=== PATIENT | female | born 1995 | race Caucasian/White ===

== ENCOUNTER 2019-09-29 08:00 | Outpatient (RCR) | payer OTHER, SELFPAY ==
[2019-08-26 17:26] VITALS: BMI 18.3
--- NOTE | 2019-08-30 07:56 | HP.PTEVAL_ITS ---
Patient's Visit Information INDRA BAIN is a 24 year old F referred to Physical Therapy by JAYY Rae with a diagnosis of thoracic strain.. Date of Evaluation: 08/30/19 Physical Therapist: Anil Mckee DPT, OCS, CSCS - Visit Plan Frequency: 3x /Week Duration: 4-6 Weeks Plan: 3x/week for 4 weeks for ... 1. c/s ret/ext based ROM progression and postural focus. 2. postural/cervical strengthening to tolerance. 3. STM to thoracic/scapular/cervical area to tolerance. Please be advised pt has high anxiety that causes her dizzyness and in severe cases to pass out. She is much better lying down but has high anxiety with this pain and people messing with her upper back in a painful way. If this happens, lie her down adn let her relax. She can tell when it is coming and will communicate to us. She has had this situaiton all of her life. - Subjective Subjective: L shoulder is painful and tight and chiang. Lifting makes it worse. Got hurt at work two weeks ago throwing clothes into box. Is L handed. Wors enined after initial injury. Put on restrictions. Pain is between shoulder blades. It is a little better since she has not done alot. Is currently store closed due to cornoavirus.Pain over weekend not really existent. Sleep is OK if she stays off her sides. Last pain was Friday when she was working. She works at [employer]. Normally 40 hrs per week. Does basic ADLs with dressing adn bathing. Cannot clean as reachig bothers her. Hobbies include cleaning which is tough for her due to pain. L Arm can get numb if she works too hard trasniently. - Pain B/w scap Pain Intensity (Out of 10): 0 Pain Intensity Range: 0, 5 - Objective c/s AROM 45 ext, pain R thoracic. 70 B rotation with contralateral pain. SB full with contralateral pain. Full flexion. Full UE AROM without pain. 2/3 bi and tricep reflexes. No sensation problems to gross light touch in UE. 3/5 UE strength without myotomal abnormalities. Shoulder elevation seems to increase her pain when resisted. Tender to palpation L rhomboids. Makes her dizzy with poking around on her UT area. Has to lie down but this is normal for her and not due to pain. Repeated motion: supine retraction(near pass out sitting): PDM, B after done. Improved ext. repeated throacic extension(posturally): PDM, Worse. Posture is forward head and elevated scapula. Has to lie down 3 x today combining pain with anxiety about what we are doing and making her dizzy skightly/lightheaded. Lying down on back immediately improves it in 1 minute. This is normal for her according to her and does not happen at home or in comfortable places. - Goals Goal 1:: Pt feel pain is 90% better and 1/10 at worst Goal Time Frame: 4-6 Weeks Goal 2:: DASH score of 15 or better Goal Time Frame: 4-6 Weeks Goal 3:: Pt I in appropriate ex to limit future problems Goal Time Frame: 4-6 Weeks Goal 4:: Pt ready to return to work without increasing symptoms. Goal Time Frame: 4-6 Weeks Goal 5:: Clean at home without increasing symptoms. Goal Time Frame: 4-6 Weeks - Rehabilitation Potential Physical Therapy Diagnosis: Likely cervical thoracic strain vs disc derangement. Rehabilitation Potential: Fair - Anticipated Interventions Patient/Client Instruction: Educate patient on: Condition, Plan of Care For the Purpose of:: To decrease pain, To improve muscle performance and motor function, To increase tolerance to activity/condition/position, To improve ability of physical actions for home/community/work/leisure Therapeutic Exercise to Include: Strength training, Postural training, Flexibilty training, Passive ROM, Active ROM, Jessica Exercises For the Purpose of:: To decrease pain, To increase ROM, To increase tolerance to activity/condition/position, To improve ability of physical actions for home/community/work/leisure Manual Therapy Techniques to Include: Soft tissue mobilization For the Purpose of:: To decrease pain Thank you for the opportunity to evaluate your patient. For Medicare and Medicare HMO plans, please review the plan of care and approve it. It will need to be FAXED BACK to us at [phone] for Medicare purposes. For Medicare only, by signing this I certify the plan of care. Please let me know if there are questions or concerns regarding this plan of care. Physician Signature: Date:
--- NOTE | 2019-09-29 08:38 | HP.PTDCSUM ---
It has been my pleasure to treat INDRA BAIN referred by JAYY Rae, with the diagnosis of thoracic strain. for a total of 12 visit(s). Discharge Date: 09/29/19 Please see the following information for a summary of their discharge status. Subjective: Ready to be done. Back and posture feel much better adn lifting at work easier. 100% better. HEP can keep her there, pulling on band and stretching. Sleep is good. Cleaning and working without pain. B/w scap Pain Intensity (Out of 10): 0 % Improvement: 100 Objective/Function: strength:4/5 in UE without pain. ROM:c/s full and painfree. L thoracic rotation slight pain at end range adn R is no pain and full. Posture is improved and patient is able to focus on this. OVERALL MUCH BETTER AND READY TO BE DONE. Goal 1:: Pt feel pain is 90% better and 1/10 at worst Goal Progress: Goal Met Goal 2:: DASH score of 15 or better Goal Progress: Goal Met Goal 3:: Pt I in appropriate ex to limit future problems Goal Progress: Goal Met Goal 4:: Pt ready to return to work without increasing symptoms. Goal Progress: Goal Met Goal 5:: Clean at home without increasing symptoms. Goal Progress: Goal Met Plan: d/c Discharge Comments: Doing great and ready to be done with PT. If there are questions or concerns regarding this patient's physical therapy, please feel free to call me at [phone]. Thank you for the referral of this patient. Sincerely, Anil Mckee, DPT, OCS, CSCS
== END 2019-09-29 19:00 | disposition home or self-care (01) ==
LOC: PT 08:00
PROVIDERS: Referring Provider Physician Assistant; Visit Provider Physician Assistant
DX: S46.812D Strain of other muscles, fascia and tendons at shoulder and upper arm level, left arm, subsequent encounter (principal); S39.012D Strain of muscle, fascia and tendon of lower back, subsequent encounter
CPT/HCPCS: 97110; 97140; 97162